=== PATIENT | male | born 1960 | race Caucasian/White ===

== ENCOUNTER 2019-07-25 09:49 | Emergency (ER) | payer SELFPAY ==
[~2019-07-25 09:49] MED LIST: Iopamidol-370 76% 500 ML 1 ML ONE
[2019-07-25] MEDS ORDERED: Clindamycin/D5W 900 mg/50 ml Premix Bag ONE (11:23)
[2019-07-25] MEDS ORDERED: HYDROcodone/Acetaminophen 10/325 mg Tablet ONE (11:23)
[2019-07-25] MEDS ORDERED: Dexamethasone 4 MG TAB ONE (11:23)
[2019-07-25] MEDS ORDERED: Dexamethasone 10 MG/ML VIAL ONE (11:27)
[2019-07-25 11:38] LABS: Hemoglobin 15.1 g/dL (14.0-18.0); Mean Corpuscular HGB CONC 33.9 g/dL (32.0-36.0); Mean Corpuscular Hemoglobin 29.2 pg (27.0-31.0); Mean Corpuscular Volume 86.2 fL (78.0-98.0); Mean Platelet Volume 7.2 fL (7.4-10.4); Platelet Count 230 thou/uL (130-400); RBC Distribution Width 12.6 % (11.5-14.5); Red Blood Cell (RBC) Count 5.16 mill/uL (4.70-6.10); White Blood Cell (WBC) Count 7.6 thou/uL (4.8-10.8)
[2019-07-25 12:05] LABS: ALT (SGPT) 8 U/L (8-55); AST (SGOT) 13 U/L (5-34); Albumin 4.4 g/dL (3.5-5.0); Alkaline Phosphatase 84 U/L (40-110); Anion Gap 11 mmol/L (10-20); BUN (Urea Nitrogen) 16 mg/dL (8.4-25.7); Bilirubin, Total 0.7 mg/dL (0.2-1.2); Calc. Creatinine Clearance 0 mL/min (70-130); Calcium 9.6 mg/dL (7.8-10.44); Carbon Dioxide 31 mmol/L (22-29); Chloride 101 mmol/L (98-107); Estimated GFR-MDRD 62; Globulin 3.1 g/dL (2.4-3.5); Glucose 82 mg/dL (70-105); Potassium 4.1 mmol/L (3.5-5.1); Protein, Total 7.5 g/dL (6.0-8.3); Sodium 139 mmol/L (136-145)
[2019-07-25 12:14] LABS: Band 1 % (5-11); Lymphocytes 22 % (21-51); MDiff Complete? YES; Monocytes 16 % (0-10); Neutrophil 61 % (42-75); RBC Morphology Normal
--- NOTE | 2019-07-25 12:37 | CT ---
CT face with IV contrast HISTORY: Facial pain and swelling. No evidence of abscess. Findings: subcutaneous edema and fat stranding around the right side of the face. Underlying muscles of mastication and parotid gland are intact. Reactive appearing lymph nodes at the submandibular level are greater on the right than the left. No focal fluid collections are apparent. There is up to 0.3 cm lucency surrounding the posterior root of tooth 28, right mandible. No associat ed osseous destruction. Caries involving this 2 and others. IMPRESSION : Loss of bone around the posterior root of tooth 28, right mandible, may reflect infection (abscess) o r loosening. No aggressive destruction. Soft tissue edema over the right side of the face at this level without focal fluid collection jefferyen t.
--- NOTE | 2019-08-04 16:26 | EKG ---
Test Reason : Blood Pressure : / mmHG Vent. Rate : 064 BPM Atrial Rate : 064 BPM P-R Int : 142 ms QRS Dur : 090 ms QT Int : 418 ms P-R-T Axes : 025 -16 -02 degrees QTc Int : 431 ms Sinus rhythm with marked sinus arrhythmia Minimal voltage criteria for LVH, may be normal variant Borderline ECG Confirmed by ANDREA ANDRADE, SAVANNA ([id number]), manager editorial MARLYS CALERO ([id number]) on 08/04/2019 4:25:20 PM Referred By: Confirmed By:SAVANNA MENDEZ MD
== END 2019-07-25 14:12 | disposition home or self-care (01) ==
LOC: ERS 09:49
DX: K04.7 Periapical abscess without sinus (principal); I10 Essential (primary) hypertension; Z79.899 Other long term (current) drug therapy
CPT/HCPCS: 36415; 70487; 80053; 85025; 93005; 96365; J1100; J3490; J8540; Q9967